=== PATIENT | female | born 2000 | race Asian ===

== ENCOUNTER 2020-06-06 14:14 | Emergency (ER) | payer SELFPAY ==
[~2020-06-06] VITALS: Ht 154.9 cm; Wt 45.4 kg
[2020-06-06 14:15] VITALS: BP_SYST 109
--- NOTE | 2020-06-06 14:40 | NUR ---
Patient to ER bed 02 to gown for evaluation. Side rails up.
--- NOTE | 2020-06-06 14:43 | NUR ---
Patient arrived in the ED with c/o epigastric pain that started yesterday. Patient admitted to taking Ketamine at a alliance party. Denied any chest pain or shortness of breath. Denied any fevers, chills, nausea or vomiting. Patient is alert and oriented x4, respirations even and unlabored, speaking in full sentences, and ambulating with a steady gait. VSS, pain level 3/10. Informed of the approximate wait time. Instructed to notify ED staff for any changes in condition or worsening of symptoms while waiting to be seen by an ED provider. Patient verbalized understanding.
--- NOTE | 2020-06-06 14:44 | NUR ---
ER Dr. Quiroga at bedside examining patient.
[2020-06-06] MEDS ORDERED: FAMOTIDINE 20 MG TABLET PO ONE (15:00)
[2020-06-06] MEDS ORDERED: MAG-AL HYDROX/SIMETH 30 ML UDC PO ONE (15:00)
--- NOTE | 2020-06-06 15:04 | NUR ---
Patient ambulated to the bathroom with a steady gait. Urine specimen collected as ordered by Dr. Quiroga.
[2020-06-06 15:13] LABS: BASOPHILS % (AUTO) 0.2 % (0.0-2.0); EOSINOPHILS % (AUTO) 0.4 % (0.0-4.0); HEMATOCRIT 35.7 % (36-48); HEMOGLOBIN 12.6 g/dL (12.0-16.0); LYMPHOCYTES # (AUTO) 1.4 K/uL (1.0-5.5); LYMPHOCYTES % (AUTO) 18.7 % (20.5-51.5); MEAN CORPUSCULAR HEMOGLOBIN 32 pg (27-31); MEAN CORPUSCULAR HGB CONC 35 % (32-36); MEAN CORPUSCULAR VOLUME 91 fL (79.0-98.0); MONOCYTES # (AUTO) 0.6 K/uL (0.0-1.0); MONOCYTES % (AUTO) 7.6 % (1.7-9.3); NEUTROPHILS # (AUTO) 5.5 K/uL (1.8-7.7); NEUTROPHILS % (AUTO) 73.1 % (40.0-70.0); PLATELET COUNT (AUTO) 202 K/uL (130-430); RED BLOOD CELL COUNT(AUTO) 3.91 MIL/uL (4.2-6.2); RED CELL DISTRIBUTION WIDTH 11.9 % (9.0-15.0); WHITE BLOOD COUNT (AUTO) 7.5 K/uL (4.8-10.8)
--- NOTE | 2020-06-06 15:20 | NUR ---
Administered Famotidine and Mylanta PO as ordered by Dr. Quiroga. Patient tolerated the medications well. See eMAR for details.
[2020-06-06 15:31] LABS: ALBUMIN 3.7 g/dL (3.4-4.8); CALCIUM 8.3 mg/dL (8.4-11.0); CREATININE 0.74 mg/dL (0.55-1.30); TOTAL BILIRUBIN 0.2 mg/dL (0.0-1.0)
[2020-06-06] MEDS ORDERED: POTASSIUM CHLORIDE 20 MEQ/PKT PACKET PO ONE (16:00)
[2020-06-06] MEDS ORDERED: DICYCLOMINE HCL 10 MG/5 ML SOLUTION PO ONE (16:15)
--- NOTE | 2020-06-06 16:26 | NUR ---
Patient given written and verbal discharge instructions and verbalizes understanding. ER MD discussed with patient the results and treatment provided. Patient in stable condition. ID arm band removed. Rx of Pepcid given. Patient educated on pain management and to follow up with PMD. Pain Scale 0/10. Opportunity for questions provided and answered. Medication side effect fact sheet provided.
[2020-06-06 16:27] VITALS: BP_SYST 109
== END 2020-06-06 16:26 | disposition home or self-care (01) ==
LOC: SED 14:14
DX: R10.84 Generalized abdominal pain (principal); F11.10 Opioid abuse, uncomplicated
CPT/HCPCS: 36415; 80053; 81002; 81025; 83690-TC; 85025; 99284